=== PATIENT | female | born 1970 | race African-American/Black ===

== ENCOUNTER 2019-08-19 08:24 | Day surgery (SDC) | payer OTHER ==
[2019-08-17 13:25] VITALS: BMI 29.9
[2019-08-19] MEDS ORDERED: EPINEPHrine 1:1,000 1 MG/1 ML - 30ML VIAL (INJECTION) ONE (10:22)
[2019-08-19] MEDS ORDERED: BUPIVACAINE HCL/PF 2.5 MG/ML - 30 ML VIAL IJ ONE (10:22)
[2019-08-19] MEDS ORDERED: DEXAMETHASONE SOD PHOSPHATE 4 MG/1 ML VIAL ONE (12:33)
[2019-08-19] MEDS ORDERED: ONDANSETRON 4 MG/2 ML VIAL ONE ×2 (12:33→13:43)
[2019-08-19] MEDS ORDERED: MIDAZOLAM HCL 2 MG/2 ML SINGLE DOSE VIAL ONE (12:34)
[2019-08-19] MEDS ORDERED: SUCCINYLCHOLINE CHLORIDE 200 MG/10 ML SYRINGE ONE (12:34)
[2019-08-19] MEDS ORDERED: PROPOFOL 20 ML ONE (12:34)
[2019-08-19] MEDS ORDERED: ceFAZolin SODIUM 1 GM VIAL ONE (12:42)
--- NOTE | 2019-08-19 12:44 | OP ---
Operative Note - Note: Operative Date: 08/19/19 Pre-Operative Diagnosis: Left medial meniscus tear Post-Operative Diagnosis: Same as Pre-op Surgeon: Dino Saavedra Leasing Manager: Pastora Ruth Operative Report Dictated: Yes
[2019-08-19] MEDS ORDERED: DESFLURANE GAS 240 ML BOTTLE IH ONE (12:55)
[2019-08-19] MEDS ORDERED: KETOROLAC TROMETHAMINE 30 MG/1 ML VIAL ONE (12:56)
[2019-08-19] MEDS ORDERED: ONDANSETRON 4 MG/2 ML VIAL IVPUSH PRN (13:58)
[2019-08-19] MEDS ORDERED: oxyCODONE HCL 5 MG TABLET PO PRN (13:58)
[2019-08-19] MEDS ORDERED: LACTATED RINGERS SOLUTION 1,000 ML IV SCH (14:00)
--- NOTE | 2019-08-19 14:43 | OP ---
DATE OF OPERATION: 08/19/2019 PREOPERATIVE DIAGNOSIS: Left knee medial and lateral meniscal tears. POSTOPERATIVE DIAGNOSIS: Left knee medial and lateral meniscal tears. PROCEDURE: Left knee arthroscopy with partial medial and partial lateral meniscectomy. SURGEON: Dino Saavedra MD TOWER TECHNICIAN: DAMIEN Humphries ANESTHESIA: General. POSTOPERATIVE CONDITION: Stable. COMPLICATIONS: None. BLOOD LOSS: Minimal. INDICATIONS: This is a pleasant woman who has been suffering from knee pain. She was found to have both medial and lateral meniscal tears. Treatment options, including nonoperative versus operative management were reviewed. Operative risks were reviewed in detail including bleeding, infection, neurovascular injury, need for further surgery, postoperative pain and stiffness, progression of osteoarthritis. We discussed medical risks such as heart attack, stroke, DVT, PE, and . I addressed all of the patient's questions and concerns. She voiced understanding and elected to proceed. PROCEDURE: The patient was brought to the operating room, where general anesthesia was administered. The left lower extremity was then prepped and draped in the usual sterile fashion. A preoperative dose of antibiotics was given and the usual timeout procedure was performed. Portal sites were then marked out on the skin. They were injected subcutaneously with 0.25% Marcaine. Lateral portal was now established. The arthroscope was passed into the knee. Passing of the trocar revealed a large effusion, which was drained. The patellofemoral joint was examined, demonstrating diffuse, moderate grade, partial-thickness articular wear on both the patellar and trochlear surfaces. Passing arthroscope into the notch demonstrated intact ACL and PCL. The arthroscope was passed in the medial compartment. A medial portal was established under spinal needle localization. Examination of the medial compartment demonstrated diffuse, moderate grade, partial-thickness articular wear on the femoral and tibial surfaces. There was a large complex tear involving the posterior horn and body of the medial meniscus. Utilizing a combination of meniscus and shaver, this was debrided down to a stable base with meniscal biter and shaver. This was debrided down to a stable base. The arthroscope was now passed to the lateral compartment. Here, also noted was a large complex tear involving all the way from the posterior horn to the anterior horn. Diffuse moderate articular wear was noted here as well. Utilizing the meniscal biter as well as shaver, this was also debrided down to a stable base. At this point, the excess fluid was withdrawn from the knee. The portals were sutured using 3-0 nylon. A sterile dressing was placed. The patient was extubated and transferred to the recovery room in stable condition. It should also be noted that while debriding the lateral meniscus, the undersurface of the meniscal tissue started to bleed. A 50-degree electrocautery wand was used to provide hemostasis. Temo [id number]
[2019-08-19 14:44] VITALS: TEMP 97.4
[2019-08-19] MEDS ORDERED: oxyCODONE HCL 5 MG TABLET ONE (14:48)
[2019-08-19] MEDS ORDERED: oxyCODONE HCL 5 MG TABLET PO ONE (14:50)
[2019-08-19 16:12] VITALS: PULSE 80
[2019-08-19 16:15] VITALS: BP 143/84
== END 2019-08-19 15:50 | disposition home or self-care (01) ==
LOC: FASU 08:24
PROVIDERS: ATTEND Orthopaedic Surgery Sports Medicine
PROC: 0SBD4ZZ Excision of Left Knee Joint, Percutaneous Endoscopic Approach (ICD-10-PCS; 2019-08-19)
PROC: 0SBD4ZZ Excision of Left Knee Joint, Percutaneous Endoscopic Approach (ICD-10-PCS; principal; 2019-08-19 12:56)
DX: S83.242A Other tear of medial meniscus, current injury, left knee, initial encounter (principal); S83.282A Other tear of lateral meniscus, current injury, left knee, initial encounter; X58.XXXA Exposure to other specified factors, initial encounter; Y93.9 Activity, unspecified; Y92.9 Unspecified place or not applicable
CPT/HCPCS: 94760